=== PATIENT | female | born 1980 | race American Indian/Alaskan Native ===

== ENCOUNTER 2018-06-14 10:29 | Emergency (ER) | payer SELFPAY ==
--- NOTE | 2018-06-14 13:52 | Emergency Department Report ---
ED Anxiety HPI - General Chief Complaint: Anxiety Stated Complaint: ANXIETY Time Seen by Provider: 06/14/18 13:42 Source: patient Mode of arrival: Ambulatory - History of Present Illness MD Complaint: anxiety -: Sudden Symptoms: palpitations Place: home Previous History of Same: Yes Severity: mild Quality: intermittant Provoking factors: work/job stress (NEW) Improves With: nothing Worsens With: thinking about event Associated symptoms: palpitations. denies: chest pain, shortness of breath, diaphoresis, denies other symptoms, confusion, cough, fever/chills, headaches, anorexia, malaise, nausea/vomiting, rash, seizure, syncope, weakness (FOUND SLEEPING IN ROOM) - Related Data Home Medications: Previous Rx's Medication Instructions Recorded Last Taken Type hydrOXYzine PAMOATE [Vistaril] 50 mg PO Q12H PRN #12 capsule 06/14/18 Unknown Rx Allergies/Adverse Reactions: Allergies Allergy/AdvReac Type Severity Reaction Status Date / Time aspirin Allergy Angioedema Verified 06/14/18 10:44 NSAIDS (Non-Steroidal Allergy Angioedema Verified 06/14/18 10:44 Anti-Inflamma ED Review of Systems ROS: Stated complaint: ANXIETY Other details as noted in HPI Comment: All other systems reviewed and negative Constitutional: denies: chills Eyes: denies: eye pain ENT: denies: ear pain, throat pain Respiratory: denies: cough, orthopnea Cardiovascular: denies: chest pain, dyspnea on exertion, orthopnea Endocrine: denies: excessive sweating, flushing Gastrointestinal: denies: abdominal pain, nausea, vomiting Genitourinary: denies: urgency Musculoskeletal: denies: back pain Skin: denies: rash, lesions Neurological: denies: headache, weakness, numbness, paresthesias, confusion, abnormal gait, vertigo Psychiatric: anxiety. denies: depression, auditory hallucinations, visual hallucinations, homicidal thoughts Hematological/Lymphatic: denies: easy bleeding ED Past Medical Hx - Past Medical History Hx Psychiatric Treatment: Yes (anxiety) - Surgical History Past Surgical History?: Yes Additional Surgical History: tubal ligation - Family History Family history: no significant - Social History Smoking Status: Never Smoker Substance Use Type: None - Medications Home Medications: Home Medications Medication Instructions Recorded Confirmed Last Taken Type hydrOXYzine PAMOATE [Vistaril] 50 mg PO Q12H PRN #12 capsule 06/14/18 Unknown Rx ED Physical Exam - General Limitations: No Limitations General appearance: alert - Head Head exam: Present: atraumatic - Eye Eye exam: Present: normal appearance Pupils: Present: normal accommodation - ENT ENT exam: Present: mucous membranes moist - Neck Neck exam: Present: normal inspection - Respiratory Respiratory exam: Present: normal lung sounds bilaterally - Cardiovascular Cardiovascular Exam: Present: regular rate, normal heart sounds, other (HR 90 ON EXAM) - GI/Abdominal GI/Abdominal exam: Present: soft - Rectal Rectal exam: Present: deferred - Extremities Exam Extremities exam: Present: normal inspection, full ROM, normal capillary refill. Absent: tenderness - Back Exam Back exam: Present: normal inspection, full ROM. Absent: tenderness, CVA tenderness (R), CVA tenderness (L) - Neurological Exam Neurological exam: Present: alert, oriented X3, CN II-XII intact, normal gait, reflexes normal - Psychiatric Psychiatric exam: Present: normal affect, normal mood, other (ON EXAM NO LONGER ANXIOUS; SHE WAS ASLEEP IN CHAIR. ) ED Course Vital Signs 06/14/18 06/14/18 10:44 14:36 Temperature 98.6 F Pulse Rate 110 H 71 Respiratory 20 16 Rate Blood Pressure 123/74 Blood Pressure 121/71 [Left] O2 Sat by Pulse 100 100 Oximetry ED Medical Decision Making - EKG Data -: EKG Interpreted by Me - Medical Decision Making HX OF SAME ANXIETY NO MEDS NEW JOB NO S/S ON EXAM- SHE WAS ASLEEP IN ROOM HAS PCP WILL FOLLOW UP - Differential Diagnosis A/C ANXIETY Critical care attestation.: If time is entered above; I have spent that time in minutes in the direct care of this critically ill patient, excluding procedure time. ED Disposition Clinical Impression: Anxiety Disposition: DC-01 TO HOME OR SELFCARE Is pt being admited?: No Does the pt Need Aspirin: No Condition: Stable Instructions: Anxiety (ED) Additional Instructions: REST HYDRATE WELL NO CAFFEINE OR OTHER STIMULATE FOLLOW UP PCP RETURN IF SYMPTOMS PERSIST Prescriptions: hydrOXYzine PAMOATE [Vistaril] 50 mg PO Q12H PRN #12 capsule PRN Reason: Anxiety Referrals: PRIMARY CAREMD [Primary Care Provider] - 3-5 Days STEPHEN NOVA MD [Staff Physician] - 3-5 Days Forms: Work/School Release Form(ED) Time of Disposition: 13:50
[2018-06-14 14:37] VITALS: BP 121/71
== END 2018-06-14 14:36 | disposition home or self-care (01) ==
LOC: ED 10:29
DX: F41.9 Anxiety disorder, unspecified (principal); Z98.51 Tubal ligation status; Z88.6 Allergy status to analgesic agent
CPT/HCPCS: 93005; 93010; 99282

== ENCOUNTER 2018-11-10 10:35 | Emergency (ER) | payer SELFPAY ==
[2018-11-10 10:50] VITALS: BP 131/84
--- NOTE | 2018-11-10 12:27 | XRay Report ---
AP AND LATERAL LUMBOSACRAL SPINE: History: Right lower extremity pain. The vertebral bodies are well mineralized and normal in alignment and vertebral height with well preserved interspace distances. The visualized portions of the posterior elements are normal. IMPRESSION: Unremarkable lumbar spine films.
--- NOTE | 2018-11-10 13:31 | Vascular Lab Report ---
PROCEDURE: VL VENOUS DUPLEX LE RT TECHNIQUE: Duplex Doppler ultrasound of the veins of the bilateral lower extremities was performed HISTORY: right leg numbness and pain COMPARISONS: None. FINDINGS: The veins of the right lower extremity are patent, compressible, demonstrate normal waveforms and aug mentation. IMPRESSION: No evidence of deep venous stenosis of the right lower extremity. This document is electronically signed by Zee Lowery MD., November 10 2018 01:28:28 PM ET
--- NOTE | 2018-11-10 14:04 | Emergency Department Report ---
ED Extremity Problem HPI - General Chief complaint: Pain General Stated complaint: RT LEG/HEADACHE/PAIN Time Seen by Provider: 11/10/18 10:57 Source: patient Mode of arrival: Ambulatory Limitations: No Limitations - History of Present Illness Initial comments: Patient is a 38-year-old female who is complaining of some right leg discomfort and numbness. Patient states that symptoms are worse in the posterior thigh and back of the knee. Patient states his present for several weeks. Occasionally patient does get some lower back pain but this is not constant. Patient denies any injury or trauma. Severity scale (0 -10): 3 - Related Data Previous Rx's Medication Instructions Recorded Last Taken Type hydrOXYzine PAMOATE [Vistaril] 50 mg PO Q12H PRN #12 capsule 06/14/18 Unknown Rx methOCARBAMOL [Robaxin TAB] 500 mg PO Q6H PRN #15 tablet 11/10/18 Unknown Rx predniSONE [Deltasone] 20 mg PO QDAY #5 tab 11/10/18 Unknown Rx Allergies Allergy/AdvReac Type Severity Reaction Status Date / Time aspirin Allergy Angioedema Verified 11/10/18 10:48 NSAIDS (Non-Steroidal Allergy Angioedema Verified 11/10/18 10:48 Anti-Inflamma ED Review of Systems ROS: Stated complaint: RT LEG/HEADACHE/PAIN Other details as noted in HPI Comment: All other systems reviewed and negative ED Past Medical Hx - Past Medical History Hx Psychiatric Treatment: Yes (anxiety) - Surgical History Additional Surgical History: tubal ligation - Social History Smoking Status: Never Smoker Substance Use Type: Alcohol - Medications Home Medications: Home Medications Medication Instructions Recorded Confirmed Last Taken Type hydrOXYzine PAMOATE [Vistaril] 50 mg PO Q12H PRN #12 capsule 06/14/18 Unknown Rx methOCARBAMOL [Robaxin TAB] 500 mg PO Q6H PRN #15 tablet 11/10/18 Unknown Rx predniSONE [Deltasone] 20 mg PO QDAY #5 tab 11/10/18 Unknown Rx ED Physical Exam - General Limitations: No Limitations General appearance: alert, in no apparent distress - Head Head exam: Present: atraumatic, normocephalic - Eye Eye exam: Present: normal appearance - ENT ENT exam: Present: normal exam, mucous membranes moist - Neck Neck exam: Present: normal inspection - Respiratory Respiratory exam: Present: normal lung sounds bilaterally. Absent: respiratory distress, wheezes, rales, rhonchi - Cardiovascular Cardiovascular Exam: Present: regular rate, normal rhythm. Absent: systolic murmur, diastolic murmur, rubs, gallop - GI/Abdominal GI/Abdominal exam: Present: soft, normal bowel sounds. Absent: distended, tenderness, guarding, rebound - Extremities Exam Extremities exam: Present: normal inspection, full ROM. Absent: tenderness - Back Exam Back exam: Present: normal inspection, full ROM. Absent: tenderness - Neurological Exam Neurological exam: Present: alert, oriented X3 - Psychiatric Psychiatric exam: Present: normal affect, normal mood - Skin Skin exam: Present: warm, dry, intact, normal color. Absent: rash ED Course Vital Signs 11/10/18 11/10/18 10:48 10:54 Temperature 98.1 F Pulse Rate 125 H 103 H Respiratory 18 18 Rate Blood Pressure 131/84 O2 Sat by Pulse 100 100 Oximetry ED Medical Decision Making - Radiology Data Ultrasound of the right lower extremity shows no acute process. X-ray of the lumbar spine shows no acute process Critical care attestation.: If time is entered above; I have spent that time in minutes in the direct care of this critically ill patient, excluding procedure time. ED Disposition Clinical Impression: Lumbar radiculopathy Disposition: DC-01 TO HOME OR SELFCARE Is pt being admited?: No Does the pt Need Aspirin: No Condition: Stable Instructions: Lumbar Radiculopathy (ED) Referrals: KATHRYN MCKEON MD [Staff Physician] - 3-5 Days Time of Disposition: 14:04
== END 2018-11-10 14:17 | disposition home or self-care (01) ==
LOC: ED 10:35
DX: M54.16 Radiculopathy, lumbar region (principal); F41.9 Anxiety disorder, unspecified; Z98.51 Tubal ligation status; Z88.6 Allergy status to analgesic agent
CPT/HCPCS: 72100

== ENCOUNTER 2020-10-05 18:41 | Emergency (ER) | payer SELFPAY ==
[2020-10-05 21:21] VITALS: BP 129/90
--- NOTE | 2020-10-05 23:02 | Emergency Department Report ---
ED Anxiety HPI - General Chief Complaint: Anxiety Stated Complaint: BAD REACTION TO MEDS/SORE THROAT Source: patient Mode of arrival: Ambulatory - History of Present Illness Initial Comments: This is a 40-year-old female with a past medical history of general anxiety disorder. She was seen by her primary care physician Dr. Beach on September 26, 2020. She had blood work done and prescribed propanolol and Zoloft for anxiety. She has a follow-up appointment on October [address] Beach patient states she cannot tolerate the medications because they are making her more anxious she took the propranolol once and she stated after taking 1 tablet it made her chest feel heavy so she has not taken it since. she states that the Zoloft is causing her to be more anxious. She denies any suicidal thoughts. She does admit to being under more stress lately she has had 4 deaths in her family within the last year. Her respirations are easy unlabored and she appears to be in no distress MD Complaint: anxiety -: Gradual Symptoms: other (Feeling anxious) Provoking factors: work/job stress, recent /illness of f Improves With: nothing Worsens With: nothing Associated symptoms: denies other symptoms, other (Feeling anxious and nervous). denies: chest pain - Related Data Home Medications: Previous Rx's Medication Instructions Recorded Last Taken Type hydrOXYzine PAMOATE [Vistaril] 50 mg PO Q12H PRN #12 capsule 06/14/18 Unknown Rx methOCARBAMOL [Robaxin TAB] 500 mg PO Q6H PRN #15 tablet 11/10/18 Unknown Rx predniSONE [Deltasone] 20 mg PO QDAY #5 tab 11/10/18 Unknown Rx Hydroxyzine HCl [hydrOXYzine] 50 mg PO Q6HR PRN #20 tablet 10/05/20 Unknown Rx Allergies/Adverse Reactions: Allergies Allergy/AdvReac Type Severity Reaction Status Date / Time aspirin Allergy Angioedema Verified 11/10/18 10:48 NSAIDS (Non-Steroidal Allergy Angioedema Verified 11/10/18 10:48 Anti-Inflamma ED Review of Systems ROS: Stated complaint: BAD REACTION TO MEDS/SORE THROAT Other details as noted in HPI Comment: All other systems reviewed and negative Constitutional: no symptoms reported Eyes: as per HPI Gastrointestinal: as per HPI Genitourinary: as per HPI Skin: as per HPI Neurological: as per HPI Psychiatric: as per HPI, anxiety ED Past Medical Hx - Past Medical History Previous Medical History?: Yes Hx Psychiatric Treatment: Yes (anxiety) - Surgical History Past Surgical History?: Yes Additional Surgical History: tubal ligation - Social History Smoking Status: Never Smoker Substance Use Type: None - Medications Home Medications: Home Medications Medication Instructions Recorded Confirmed Last Taken Type hydrOXYzine PAMOATE [Vistaril] 50 mg PO Q12H PRN #12 capsule 06/14/18 Unknown Rx methOCARBAMOL [Robaxin TAB] 500 mg PO Q6H PRN #15 tablet 11/10/18 Unknown Rx predniSONE [Deltasone] 20 mg PO QDAY #5 tab 11/10/18 Unknown Rx Hydroxyzine HCl [hydrOXYzine] 50 mg PO Q6HR PRN #20 tablet 10/05/20 Unknown Rx ED Physical Exam - General Limitations: No Limitations General appearance: alert, in no apparent distress - Head Head exam: Present: atraumatic, normal inspection - Eye Eye exam: Present: normal appearance - ENT ENT exam: Present: normal exam, mucous membranes dry - Neck Neck exam: Present: normal inspection, full ROM - Respiratory Respiratory exam: Present: normal lung sounds bilaterally - Cardiovascular Cardiovascular Exam: Present: regular rate, normal heart sounds - Back Exam Back exam: Present: normal inspection - Neurological Exam Neurological exam: Present: alert, oriented X3 - Psychiatric Psychiatric exam: Present: anxious - Skin Skin exam: Present: warm, dry, intact, normal color ED Course Vital Signs 10/05/20 21:17 Temperature 98.1 F Pulse Rate 70 Respiratory 18 Rate Blood Pressure 129/90 O2 Sat by Pulse 100 Oximetry - Reevaluation(s) Reevaluation #1: 10/05/20 23:04 After speaking with patient she is currently calm in no distress. Respirations easy and unlabored gait steady. She agrees with ED Medical Decision Making - Medical Decision Making This is a 40-year-old female with a long history of anxiety disorder. She was last seen by her primary care doctor Dr. Beach on the and started on propranolol and Zoloft for her anxiety patient states she is not tolerating either 1 of these medications and has become more anxious. She denies any suicidal thoughts she has follow-up appointment scheduled with Dr. Beach on 10 October patient plans to follow-up on Wednesday. To review all her blood work that Dr. Beach did a last week. I discussed meditation I discussed counseling for anxiety - Differential Diagnosis Anxiety, Critical care attestation.: If time is entered above; I have spent that time in minutes in the direct care of this critically ill patient, excluding procedure time. ED Disposition Clinical Impression: Anxiety disorder Qualifiers: Anxiety disorder type: generalized anxiety disorder Qualified Code(s): F41.1 - Generalized anxiety disorder Disposition: DC-01 TO HOME OR SELFCARE Is pt being admited?: No Does the pt Need Aspirin: No Condition: Stable Instructions: Supporting Someone With Anxiety, Managing Anxiety, Adult Additional Instructions: It is important that you rest drink plenty of fluids, I suggest meditation deep breathing exercises or yoga to decrease your anxiety level. Please follow-up with Dr. Beach on Wednesday or on the as schedule to review your lab results and also to let her know about your worsening symptoms with the current medications that you are taking. Take hydroxyzine as prescribed for anxiety. Return to the emergency room for any worsening symptoms Prescriptions: Hydroxyzine HCl [hydrOXYzine] 50 mg PO Q6HR PRN #20 tablet PRN Reason: Anxiety Referrals: PRIMARY CARE, [Primary Care Provider] - 3-5 Days TEGAN MARTINEZ MD [Staff Physician] - 3-5 Days [facility] [Outside] - 3-5 Days Forms: Work/School Release Form(ED) Time of Disposition: 23:09
== END 2020-10-05 23:33 | disposition home or self-care (01) ==
LOC: ED 18:41
DX: F41.9 Anxiety disorder, unspecified (principal); Z88.6 Allergy status to analgesic agent; Z88.8 Allergy status to other drugs, medicaments and biological substances; Z79.899 Other long term (current) drug therapy; Z98.51 Tubal ligation status
CPT/HCPCS: 99282

== ENCOUNTER 2021-01-18 16:25 | Emergency (ER) | payer OTHER ==
--- NOTE | 2021-01-18 17:34 | Emergency Department Report ---
Chief Complaint: Neck Pain/Injury Stated Complaint: NECK PAIN/EDEMA - HPI History of Present Illness: 40-year-old -[place] female presents to the emergency room for a lump on the left side of her neck for over a month. Patient denies any fever chills or nausea no vomiting or trouble swallowing no shortness of breath or chest pain, patient reports she is has some discomfort on her left side of her neck near her ear. Patient states nothing makes it worse nothing makes it better. She denies any ear drainage no ear pain. Patient reports that she does have a primary care provider and states that she has spoke to her in regards of it she recommend [id number] antihistamines which should help with her postnasal drip but did not change the fact that she has a lump. Patient does admit she has a history of anxiety and feels maybe she is overthinking it. - Exam Vital Signs: Vital Signs 01/18/21 16:36 Temperature 98.7 F Pulse Rate 89 Respiratory 18 Rate Blood Pressure 121/75 O2 Sat by Pulse 100 Oximetry Physical Exam: General: Awake, appropriately interactive, no acute distress. Neck: Supple. Full range of motion intact. Left-sided mild fullness no fixed lump or mass. Cardiovascular: Normal peripheral perfusion. Pulmonary: No respiratory distress. Patient is speaking normally without use of accessory muscles. Skin: No apparent rashes or lesions. Neurological: No facial asymmetry. Speech is clear. Follows commands. Patient is alert and oriented. Musculoskeletal: Full range of motion, no crepitus. No tenderness to palpate nonerythematous no edema test appreciated. Able to bear weight and ambulate without difficulty. Distal neurovascular and motor/sensory function is intact. Psych: Cooperative. Appropriate mood and affect. MSE screening note: Focused history and physical exam performed. Due to findings the following was ordered: 40-year-old -[place] female presents to the emergency room for a lump on the left side of her neck for over a month. Patient denies any fever chills or nausea no vomiting or trouble swallowing no shortness of breath or chest pain, patient reports she is has some discomfort on her left side of her neck near her ear. Patient states nothing makes it worse nothing makes it better. She denies any ear drainage no ear pain. Patient reports that she does have a primary care provider and states that she has spoke to her in regards of it she recommend [id number] antihistamines which should help with her postnasal drip but did not change the fact that she has a lump. Patient does admit she has a history of anxiety and feels maybe she is overthinking it. Discussed with patient she can follow-up with her primary care provider. As she is stable with no shortness of breath no fever no difficulty swallowing or chest pain. Discussed with patient she can continue with the Tylenol as she has an allergy to NSAIDs. Patient verbalized understanding. ED Disposition for MSE Disposition: MED SCREENING EXAM-LEFT Is pt being admited?: No Does the pt Need Aspirin: No Condition: Stable Additional Instructions: Please follow-up with your primary care provider. Tylenol for pain. Referrals: DEVYN KARIMI NP [Referring] - 3-5 Days Forms: Work/School Release Form(ED)
== END 2021-01-18 18:00 | disposition left against medical advice (07) ==
LOC: ED 16:25

== ENCOUNTER 2021-10-18 07:55 | Emergency (ER) | payer OTHER ==
[2021-10-18] MEDS ORDERED: dexAMETHasone 20 MG/5 ML VIAL IM ONE (08:26)
--- NOTE | 2021-10-18 08:28 | Emergency Department Report ---
ED ENT HPI - General Chief complaint: Dental/Oral Stated complaint: PAIN IN LT JAW HEAD NECK AREA Time Seen by Provider: 10/18/21 08:16 Source: patient Mode of arrival: Ambulatory Limitations: No Limitations - History of Present Illness Initial comments: 41-year-old female presents to the ER today with complaints of left lower jaw pain. Patient states that she been having this pain intermittently for the past month. Patient states that she has a known history of periodontal disease and so is not sure if it is coming from her teeth though she does not feel like her teeth is hurting. She states that the pain radiates into the rest of the left side of her face including her ears. She reports no swelling to the jaw. She reports no difficulty opening her mouth. She reports no injury, redness or bruising. She last saw dentist about 1 year ago. She states that she was instructed to follow up with resident care manager but was unable to due to cost. She states that she had noticed some mild swelling to her left anterior neck a few months back and follow-up with her primary care doctor ordered an ultrasound of her thyroid and that was normal. Primary care doctor instructed that she will need to follow-up with ENT but she tried to follow-up with Dr. Naranjo, but he recently retired. She states that she feels like the area is still swollen, but she is not having any difficulty swallowing, ST or difficulty breathing, no associated redness and is not tender to palpate. She denies any fever or chills. She reports no additional symptoms at this time. MD complaint: other (Left jaw pain ) -: month(s) (1) - Related Data Previous Rx's Medication Instructions Recorded Last Taken Type hydrOXYzine PAMOATE [Vistaril] 50 mg PO Q12H PRN #12 capsule 06/14/18 Unknown Rx methOCARBAMOL [Robaxin TAB] 500 mg PO Q6H PRN #15 tablet 11/10/18 Unknown Rx predniSONE [Deltasone] 20 mg PO QDAY #5 tab 11/10/18 Unknown Rx Hydroxyzine HCl [hydrOXYzine] 50 mg PO Q6HR PRN #20 tablet 10/05/20 Unknown Rx Acetaminophen/Codeine [Tylenol 1 tab PO Q6H PRN #12 tab 10/18/21 Unknown Rx /Codeine # 3 tab] Allergies Allergy/AdvReac Type Severity Reaction Status Date / Time aspirin Allergy Angioedema Verified 11/10/18 10:48 NSAIDS (Non-Steroidal Allergy Angioedema Verified 11/10/18 10:48 Anti-Inflamma ED Dental HPI - General Chief complaint: Dental/Oral Stated complaint: PAIN IN LT JAW HEAD NECK AREA Time Seen by Provider: 10/18/21 08:16 Source: patient Mode of arrival: Ambulatory Limitations: No Limitations - Related Data Previous Rx's Medication Instructions Recorded Last Taken Type hydrOXYzine PAMOATE [Vistaril] 50 mg PO Q12H PRN #12 capsule 06/14/18 Unknown Rx methOCARBAMOL [Robaxin TAB] 500 mg PO Q6H PRN #15 tablet 11/10/18 Unknown Rx predniSONE [Deltasone] 20 mg PO QDAY #5 tab 11/10/18 Unknown Rx Hydroxyzine HCl [hydrOXYzine] 50 mg PO Q6HR PRN #20 tablet 10/05/20 Unknown Rx Acetaminophen/Codeine [Tylenol 1 tab PO Q6H PRN #12 tab 10/18/21 Unknown Rx /Codeine # 3 tab] Allergies Allergy/AdvReac Type Severity Reaction Status Date / Time aspirin Allergy Angioedema Verified 11/10/18 10:48 NSAIDS (Non-Steroidal Allergy Angioedema Verified 11/10/18 10:48 Anti-Inflamma ED Review of Systems ROS: Stated complaint: PAIN IN LT JAW HEAD NECK AREA Other details as noted in HPI Comment: All other systems reviewed and negative Constitutional: no symptoms reported Eyes: denies: eye pain, eye discharge, vision change ENT: other (left jaw pain ). denies: ear pain, throat pain, dental pain, hearing loss, epistaxis, congestion Respiratory: denies: cough, shortness of breath, SOB with exertion, SOB at rest, stridor, wheezing Cardiovascular: denies: chest pain, palpitations, dyspnea on exertion, edema, sy ncope, paroxysmal nocturnal dyspnea Gastrointestinal: denies: abdominal pain, nausea, diarrhea, constipation, hematemesis, melena, hematochezia Genitourinary: denies: urgency, dysuria, frequency, hematuria, discharge, abnormal menses, dyspareunia Musculoskeletal: denies: back pain, joint swelling, arthralgia Skin: denies: rash, lesions Neurological: denies: headache, weakness, numbness, paresthesias, confusion, abnormal gait, vertigo Psychiatric: denies: anxiety, depression, auditory hallucinations, visual hallucinations, homicidal thoughts, suicidal thoughts ED Past Medical Hx - Past Medical History Previous Medical History?: No Hx Psychiatric Treatment: Yes (anxiety) - Surgical History Additional Surgical History: tubal ligation - Social History Smoking Status: Never Smoker Substance Use Type: None - Medications Home Medications: Home Medications Medication Instructions Recorded Confirmed Last Taken Type hydrOXYzine PAMOATE [Vistaril] 50 mg PO Q12H PRN #12 capsule 06/14/18 Unknown Rx methOCARBAMOL [Robaxin TAB] 500 mg PO Q6H PRN #15 tablet 11/10/18 Unknown Rx predniSONE [Deltasone] 20 mg PO QDAY #5 tab 11/10/18 Unknown Rx Hydroxyzine HCl [hydrOXYzine] 50 mg PO Q6HR PRN #20 tablet 10/05/20 Unknown Rx Acetaminophen/Codeine [Tylenol 1 tab PO Q6H PRN #12 tab 10/18/21 Unknown Rx /Codeine # 3 tab] ED Physical Exam - General Limitations: No Limitations General appearance: alert, in no apparent distress - Head Head exam: Present: atraumatic, normocephalic, normal inspection - Eye Eye exam: Present: normal appearance, PERRL, EOMI Pupils: Present: normal accommodation - ENT ENT exam: Present: normal exam, mucous membranes moist, TM's normal bilaterally, normal external ear exam, other (Mild tenderness to palpation along the left lower jaw but no TMJ tenderness no upper jaw tenderness, no apparent dental tenderness and she has no apparent facial swelling or erythema. No trismus or drooling.) - Expanded ENT Exam Expanded Mouth exam: Present: normal external inspection, tongue normal. Absent: drooling, trismus, muffled voice, tongue elevation, laceration Throat exam: Positive: normal inspection. Negative: tonsillar erythema, tonsillomegaly, R peritonsillar mass, L peritonsillar mass - Neck Neck exam: Present: normal inspection, full ROM. Absent: tenderness, meningismus, lymphadenopathy, thyromegaly - Respiratory Respiratory exam: Present: normal lung sounds bilaterally. Absent: respiratory distress - Cardiovascular Cardiovascular Exam: Present: regular rate, normal rhythm, normal heart sounds - Neurological Exam Neurological exam: Present: alert, oriented X3, CN II-XII intact, normal gait - Psychiatric Psychiatric exam: Present: normal affect, normal mood - Skin Skin exam: Present: intact ED Course Vital Signs 10/18/21 08:07 Temperature 98.5 F Pulse Rate 74 Respiratory 18 Rate Blood Pressure 119/70 O2 Sat by Pulse 100 Oximetry ED Medical Decision Making - Medical Decision Making 41-year-old female presents to the ER today with complaints of left lower jaw pain. Patient states that she been having this pain intermittently for the past month. Patient states that she has a known history of periodontal disease and so is not sure if it is coming from her teeth though she does not feel like her teeth is hurting. She states that the pain radiates into the rest of the left side of her face including her ears. She reports no swelling to the jaw. She reports no difficulty opening her mouth. She reports no injury, redness or bruising. She last saw dentist about 1 year ago. She states that she was instructed to follow up with resident care manager but was unable to due to cost. She states that she had noticed some mild swelling to her left anterior neck a few months back and follow-up with her primary care doctor ordered an ultrasound of her thyroid and that was normal. Primary care doctor instructed that she will need to follow-up with ENT but she tried to follow-up with Dr. Naranjo, but he recently retired. She states that she feels like the area is still swollen, but she is not having any difficulty swallowing, ST or difficulty breathing, no associated redness and is not tender to palpate. She denies any fever or chills. She reports no additional symptoms at this time. 0844: Patient is well-appearing and nontoxic. She is not in any significant di stress. Patient does not have any dental tenderness or any signs of dental abscess. She has no facial swelling, posterior pharynx and tonsils appear normal and her airway is intact. No apparent swelling noted to the anterior neck. No erythema noted to the face or the neck. Patient is able to tolerate her secretions and she has no drooling. She has no stridor on exam. Ear exam is normal. She has no TMJ tenderness. No evidence of peritonsillar abscess or Shay angina. Exact cause of patient's symptoms at this time unclear, could be related to trigeminal neuralgia but I did recommend that she make the appointment with cutting pressman as instructed by her dentist and also to the ENT as instructed by her PCP. We will give her some medication to help her pain. Patient vital signs are stable. She expressed understanding and agree with plan. Patient stable at time of discharge Critical care attestation.: If time is entered above; I have spent that time in minutes in the direct care of this critically ill patient, excluding procedure time. ED Disposition Clinical Impression: Jaw pain Disposition: 01 HOME / SELF CARE / HOMELESS Is pt being admited?: No Does the pt Need Aspirin: No Condition: Stable Instructions: Pain Without a Known Cause, Trigeminal Neuralgia Additional Instructions: I recommend that you take the Tylenol threes as prescribed to help with pain. Most importantly I do recommend that you make an appointment with cutting pressman as instructed by your dentist, as well as follow-up with the ENT for further evaluation of this pain. Return if symptoms worsens or changes Prescriptions: Acetaminophen/Codeine [Tylenol /Codeine # 3 tab] 1 tab PO Q6H PRN #12 tab PRN Reason: Pain , Severe (7-10) Referrals: ELENO RO MD [Staff Physician] - 3-5 Days Forms: Work/School Release Form(ED) Time of Disposition: 08:28
[2021-10-18 09:06] VITALS: BP 112/67
== END 2021-10-18 09:06 | disposition home or self-care (01) ==
LOC: ED 07:55
DX: R68.84 Jaw pain (principal); F41.9 Anxiety disorder, unspecified; Z98.51 Tubal ligation status; Z79.899 Other long term (current) drug therapy; Z88.1 Allergy status to other antibiotic agents; Z91.09 Other allergy status, other than to drugs and biological substances
CPT/HCPCS: 96372; 99282; J1100